=== PATIENT | male | born 1965 | race American Indian/Alaskan Native ===

== ENCOUNTER 2017-07-19 12:48 | Outpatient (CLI) | payer BC ==
--- NOTE | 2017-07-19 16:29 | XRay Report ---
FINAL REPORT EXAM: XR SPINE LUMBOSACRAL 2-3V HISTORY: LUMBAR PAIN TECHNIQUE: Lumbar spine five views PRIORS: None. FINDINGS: Vertebral bodies demonstrate normal height and alignment. There is disc space narrowing at L4-5 with small marginal vertebral body osteophytes. There is no evidence of spondylolisthesis. Transverse and spinous processes are intact SI joints are unremarkable. IMPRESSION: Degenerative disc disease at L4-5
--- NOTE | 2017-07-19 16:39 | XRay Report ---
FINAL REPORT EXAM: XR HIP 2-3V RT HISTORY: RIGHT HIP PAIN TECHNIQUE: Right hip with AP pelvis three views PRIORS: None. FINDINGS: There is advanced degenerative change at the right hip with marked joint space narrowing. Subchondral femoral head and acetabular sclerotic and cystic changes are present. There is some remodeling of femoral head. No acute fracture or dislocation is identified. Noted are moderate degenerative changes of the left hip with joint space narrowing and subchondral sclerotic changes. IMPRESSION: Severe degenerative changes at the right hip with moderate degenerative change at the left hip
--- NOTE | 2017-07-19 16:42 | XRay Report ---
FINAL REPORT EXAM: XR SPINE CERVICAL 2-3V HISTORY: LUMBAR PAIN/RIGHT HIP PAIN TECHNIQUE: Cervical spine five views PRIORS: None. FINDINGS: Vertebral bodies demonstrate normal height and alignment. Noted is anterior osteophyte at the inferior endplate C3. There is disc space narrowing C6-C7. The disk spaces are within normal limits. The facet joints demonstrate normal alignment. The spinous processes are intact. Craniocervical junction is unremarkable. C1 and C2 are intact. IMPRESSION: Spondylosis with degenerative disc changes at C6-C7
== END 2017-07-19 12:49 | disposition home or self-care (01) ==
LOC: XRAY 12:48
PROVIDERS: ATTEND Family Medicine Adult Medicine
DX: M47.892 Other spondylosis, cervical region (principal); M16.0 Bilateral primary osteoarthritis of hip; M51.36 Other intervertebral disc degeneration, lumbar region
CPT/HCPCS: 72040; 72100